=== PATIENT | female | born 1990 | race Caucasian/White ===

== ENCOUNTER → 2023-11-05 12:12 | Outpatient (CLI) | payer OTHER, SELFPAY ==
--- NOTE | 2023-11-05 12:15 | DI.US.S_ITS ---
PROCEDURE: US OB <= 14 WEEKS FETUS INDICATIONS: Bleeding early OUTSIDE/PRIOR DATING DATA: Last menstrual period (LMP): 08/29/2023. LMP-based estimated date of delivery (ITZEL): 06/04/2024. First dating scan (date and location): 11/05/2023. Estimated date of delivery (ITZEL) from first dating scan: 05/28/2024. TECHNIQUE: Real-time scanning was performed of the fetus and maternal pelvic organs, with image documentation. COMPARISON: None. FINDINGS: A single living intrauterine gestation is present with a crown-rump length of 38 mm, corresponding to a 10 week 5 day gestation. heart rate is 185 beats per minute. There is a 32 mm subchorionic hemorrhage present. IMPRESSION: Single living intrauterine gestation with small subchorionic hemorrhage. We strive to produce accurate, complete, and clear reports of imaging services. To assist us in improving patient care, this report was composed using standard report templates and voice recognition software. Therefore, it may contain abnormal punctuation, insertions and/or omissions. Occasional wrong-word or sound-alike substitutions may occur. Though we review the report and make efforts to correct it, we do recommend that the report be read carefully in proper context to recognize any text inaccuracies. Dictated by: Sabra Lala M.D. on 11/05/2023 at 13:38 Approved by: Sabra Lala M.D. on 11/05/2023 at 13:39
== END ==
PROVIDERS: PCP Family Medicine; Referring Provider Student in an Organized Health Care Education/Training Program; Visit Provider Student in an Organized Health Care Education/Training Program
DX: O20.9 Hemorrhage in early pregnancy, unspecified (principal); Z3A.10 10 weeks gestation of pregnancy
CPT/HCPCS: 76801; 76817

== ENCOUNTER → 2023-11-13 11:17 | Outpatient (CLI) | payer OTHER, SELFPAY ==
[2023-11-13 12:14] LABS: Add Manual Diff / Slide Review NO; Basophils Absolute Auto 0 /uL (0-100); Basophils Percent Auto 0.2 % (0-2); Eosinophils Absolute Auto 0 /uL (0-450); Eosinophils Percent Auto 0.6 % (2-4); Hematocrit 35.7 % (36-46); Hemoglobin 12.4 g/dL (12.0-16.0); Lymphocytes Absolute Auto 1800 /uL (1100-4500); Lymphocytes Percent Auto 24.7 % (25-40); Mean Corpuscular HGB Conc 34.7 % (30-36); Mean Corpuscular Hemoglobin 28.7 PG (26-34); Mean Corpuscular Volume 82.6 fL (80-100); Monocytes Absolute Auto 400 /uL (0-900); Neutrophils Absolute Auto 4900 /uL (1500-7000); Neutrophils Percent Auto 69.5 % (50-75); Platelet Count 247 X10^3/uL (150-400); Red Blood Cell Count 4.32 X10^6/uL (4.0-5.2); Red Cell Distribution Width 14.1 % (11.6-14.8); White Blood Cell Count 7.1 X10^3/uL (4.5-11.0)
[2023-11-13 12:21] LABS: Hemoglobin A1C% w Est Avg Glu 5.2 % (4.0-6.0)
[2023-11-14 08:26] LABS: Varicella IgG Antibody 1617 index (Immune >165)
[2023-11-14 16:26] LABS: Hepatitis B Surface Antigen NEGATIVE s/c (NEGATIVE); Rubella Antibody IgG 74.8 IU/mL (>15)
[2023-11-14 16:43] LABS: HIV 1 & 2 Ab/Ag 4th Gen Combo NEGATIVE (NEGATIVE); Hep C Virus Ab w/Reflex Quant NEGATIVE s/c (NEGATIVE)
[2023-11-15 03:30] LABS: RPR Screen Non Reactive (Non Reactive)
== END ==
PROVIDERS: Referring Provider Student in an Organized Health Care Education/Training Program; Visit Provider Student in an Organized Health Care Education/Training Program
DX: O09.299 Supervision of pregnancy with other poor reproductive or obstetric history, unspecified trimester (principal); Z86.32 Personal history of gestational diabetes
CPT/HCPCS: 36415; 80055; 83036; 86787; 86803; 86850; 86900; 86901; 87086; 87389

== ENCOUNTER → 2024-01-15 12:41 | Outpatient (CLI) | payer OTHER, SELFPAY ==
--- NOTE | 2024-01-15 12:42 | DI.US.S_ITS ---
PROCEDURE: US OB >= 14 WEEKS FETUS INDICATIONS: anatomy scan OUTSIDE/PRIOR DATING DATA: Last menstrual period (LMP): 08/29/2023 LMP-based estimated date of delivery (ITZEL): 06/04/2024. First dating scan (date and location): 11/05/2023 Estimated date of delivery (ITZEL) from first dating scan: 05/28/2024. The calculations are made using the working ITZEL of 06/04/2024. TECHNIQUE: Real-time scanning was performed of the fetus, with image documentation and biometric measurements. Endovaginal scanning: Not performed COMPARISON: None. FINDINGS: General: A single living intrauterine gestation is present. Presentation: Breech Placenta: Placental position is posterior, without previa. Amniotic fluid index: 9.7 cm, normal range is 5-24 cm. Single deepest vertical pocket is 3.7 cm. heart rate: 160 beats per minute. Maternal cervical canal: 4.1 cm long. Normal lower limit is 2.5 cm. biometrics: Biparietal diameter: 4.8 cm, 20 weeks, 4 days Head circumference: 18.6 cm, 21 weeks, 0 day Abdominal circumference: 15.2 cm, 20 weeks, 3 days Femur length: 3.3 cm, 20 weeks, 2 days Clinically estimated gestational age: 19 weeks 6 days Composite gestational age from present scan: 20 weeks, 4 days Estimated weight and percentile: 352 g, 77%. Anatomic survey: Neuro: Ventricles are non-dilated at less than 10 mm. Cisterna magna is normal at 3-11 mm. Cerebellum is normal in size and morphology. Nuchal skin fold: Normal at less than 6 mm between 14-21 weeks gestational age. Face: Nose and lips, facial profile are normal. Spine: No evidence for spina bifida. Heart: 4-chambered heart is present,. Ventricular outflow tracts are not well seen on this study. Diaphragm: Diaphragm is intact. Stomach: Left-sided stomach is present. Kidneys: No hydronephrosis. Normal is less than 5 mm in 2nd trimester, less than 7 mm in 3rd trimester. Cord: 3-vessel cord has orthotopic insertion. Bladder: Normal in size. Extremities: All 4 extremities identified. IMPRESSION: 1. Single live intrauterine gestation with fetus in breech presentation. heart rate is 160 beats per minute. Normal amount of amniotic fluid. Normal growth with estimated weight at 77%. 2. Ventricular outflow tracts are not well seen on this study. The rest of the anatomic survey is normal. We strive to produce accurate, complete, and clear reports of imaging services. To assist us in improving patient care, this report was composed using standard report templates and voice recognition software. Therefore, it may contain abnormal punctuation, insertions and/or omissions. Occasional wrong-word or sound-alike substitutions may occur. Though we review the report and make efforts to correct it, we do recommend that the report be read carefully in proper context to recognize any text inaccuracies. Dictated by: Yony Proctor M.D. on 01/15/2024 at 15:19 Approved by: Yony Proctor M.D. on 01/15/2024 at 15:21
== END ==
PROVIDERS: Referring Provider Student in an Organized Health Care Education/Training Program; Visit Provider Student in an Organized Health Care Education/Training Program
DX: Z34.82 Encounter for supervision of other normal pregnancy, second trimester (principal); Z3A.20 20 weeks gestation of pregnancy
CPT/HCPCS: 76811

== ENCOUNTER → 2024-01-21 13:49 | Outpatient (CLI) | payer OTHER, SELFPAY ==
[2024-01-21 20:14] LABS: Urine N gonorrhoeae NOT DETECTED
[2024-01-21 20:19] LABS: Urine Chlamydia NOT DETECTED
== END ==
PROVIDERS: Visit Provider Student in an Organized Health Care Education/Training Program
DX: Z34.80 Encounter for supervision of other normal pregnancy, unspecified trimester (principal)
CPT/HCPCS: 87491; 87591

== ENCOUNTER → 2024-01-21 14:05 | Outpatient (CLI) | payer OTHER, SELFPAY ==
[2024-01-23 21:21] LABS: AFP Value 62.1 ng/mL (.); Gest Age on Col Date 20.6 weeks (.); Insulin Dep Diabetes No (.); OSBR Risk 1IN 4947 (.); Results Report (.); Test Results *Screen Negative* (.)
== END ==
LOC: LAB 14:06
PROVIDERS: Referring Provider Student in an Organized Health Care Education/Training Program; Visit Provider Student in an Organized Health Care Education/Training Program
DX: O99.212 Obesity complicating pregnancy, second trimester (principal)
CPT/HCPCS: 36415; 82105; 87491; 87591

== ENCOUNTER → 2024-03-17 11:58 | Outpatient (CLI) | payer OTHER, SELFPAY ==
[2024-03-17 13:57] LABS: Hematocrit 32.6 % (36-46); Hemoglobin 11.5 g/dL (12.0-16.0)
[2024-03-17 14:28] LABS: GTT (PREG) 1 Hour PP 50gm Dose 144 mg/dL (76-139)
== END ==
PROVIDERS: Referring Provider Student in an Organized Health Care Education/Training Program; Visit Provider Student in an Organized Health Care Education/Training Program
DX: Z34.82 Encounter for supervision of other normal pregnancy, second trimester (principal); Z3A.26 26 weeks gestation of pregnancy
CPT/HCPCS: 36415; 82950; 85014; 85018; 86850

== ENCOUNTER → 2024-04-07 12:43 | Outpatient (CLI) | payer OTHER, SELFPAY ==
--- NOTE | 2024-04-07 12:43 | DI.US.S_ITS ---
PROCEDURE: US OB FOLLOW UP INDICATIONS: incomplete heart views; follow-up growth OUTSIDE/PRIOR DATING DATA: Last menstrual period (LMP): 08/29/2023. LMP-based estimated date of delivery (ITZEL): 06/04/2024. First dating scan (date and location): 11/05/2023. Estimated date of delivery (ITZEL) from first dating scan: 05/28/2024. The calculations are made using the clinical ITZEL of 06/04/2024. TECHNIQUE: Real-time scanning was performed of the fetus, with image documentation and biometric measurements. Endovaginal scanning: Not performed. COMPARISON: OB ultrasound 01/15/2024. FINDINGS: General: A single living intrauterine gestation is present. Presentation: Vertex. Placenta: Placental position is posterior, without previa. Amniotic fluid index: 11.1 cm, normal range is 5-24 cm. Single deepest vertical pocket is 3.4 cm. heart rate: 137 beats per minute. Maternal cervical canal: 4.1 cm long. Normal lower limit is 2.5 cm. biometrics: Biparietal diameter: 7.9 cm, 31 weeks 5 days Head circumference: 29.9 cm, 33 weeks 1 day Abdominal circumference: 29.7 cm, 33 weeks 5 days Femur length: 6.2 cm, 32 weeks 5 days Clinically estimated gestational age: 31 weeks 5 days Composite gestational age from present scan: 32 weeks 5 days Estimated weight and percentile: 2099 g, 80th percentile Anatomic survey: Heart: Not well seen due to lie. IMPRESSION: 1. [place] living intrauterine at 32 weeks 5 days based on today's ultrasound. Fetus is in the 80th percentile for weight. Vertex position. 2. Normal placenta and amniotic fluid. 3. Cardiac outflow tracts are not well seen due to lie. We strive to produce accurate, complete, and clear reports of imaging services. To assist us in improving patient care, this report was composed using standard report templates and voice recognition software. Therefore, it may contain abnormal punctuation, insertions and/or omissions. Occasional wrong-word or sound-alike substitutions may occur. Though we review the report and make efforts to correct it, we do recommend that the report be read carefully in proper context to recognize any text inaccuracies. Dictated by: Andreas Aragon M.D. on 04/07/2024 at 17:09 Approved by: Andreas Aragon M.D. on 04/07/2024 at 17:15
== END ==
PROVIDERS: Referring Provider Student in an Organized Health Care Education/Training Program; Visit Provider Student in an Organized Health Care Education/Training Program
DX: O26.843 Uterine size-date discrepancy, third trimester (principal); Z3A.32 32 weeks gestation of pregnancy
CPT/HCPCS: 76816

== ENCOUNTER → 2024-04-10 07:49 | Outpatient (CLI) | payer OTHER, SELFPAY ==
[2024-04-10 08:39] LABS: Glucose Fasting Gestational 108 mg/dL (76-95)
[2024-04-10 10:07] LABS: Glucose 1 Hour Gest 200 mg/dL (76-180)
[2024-04-10 11:14] LABS: Glucose Tol Interp,Gestational INTERPRETATION
[2024-04-10 11:53] LABS: Glucose 2 Hour Gest 159 mg/dL (76-155)
[2024-04-10 12:32] LABS: Glucose 3 Hour Gest 112 mg/dL (76-140)
== END ==
LOC: LAB 07:49
PROVIDERS: Referring Provider Student in an Organized Health Care Education/Training Program; Visit Provider Student in an Organized Health Care Education/Training Program
DX: O99.810 Abnormal glucose complicating pregnancy (principal); Z3A.26 26 weeks gestation of pregnancy
CPT/HCPCS: 36415; 82951; 82952; 86850; 86870

== ENCOUNTER → 2024-04-24 13:18 | Outpatient (CLI) | payer OTHER, SELFPAY ==
--- NOTE | 2024-04-24 13:32 | DIAB.GDA ---
Addendum entered by Sonali Becker 04/29/24 14:13: Time 1:15-2p Original Note: Initial Gestational Diabetes Assessment Name: Yaa Villa Date: 04/24/24 Time: 1:15- Dx: Gestational Diabetes Provider: Anton ITZEL: 06/04/24 Weeks: 34 Yaa presents for initial GDM visit virtually using [facility]. PMH of GDM with first , son born >9#. Reports diet controlled GDM. No GDM with second . Reports FH of T2DM with mother and grandmother. No dessert since diagnosis. Or will have 3 small cookies. Wants CGM, however not currently on insulin therapy so insurance unlikely to approve. Will place sample next visit when in office and discuss options for SMBG. Diet Recall: wake 8a Bed 930a 8a: espresso with 8oz milk 10-11a: eggs, 1c quinoa and brown rice, veggies 2-3p: same as breakfast OR leftovers: chicken/steak with veggies sometimes low CHO tortillas sn: watermelon or white peach 530-630p: protein, veggies, noyola pasta x 2c water: inconsistent; 40-60oz sometimes less, hard to drink water right now. Doing low sugar flavor pkts Anthropometrics: Ht: Wt: 236# 04/14/24 at OB Prepregnancy wt: 230# Physical Activity: Walks every other day with children. Self-Monitoring Blood Glucose: None Diabetes Medications: None Pertinent Labs: Screen 144 OGTT: 108H, 200H, 159H, 112 Nutrition Rx: Carbohydrates: Meal: 45-g lunch and dinner; 30g breakfast Snack: 15-30g Nutrition Diagnosis: Altered nutrition related lab value r/t GDM dx aeb recent OGTT Food and nutrition related knowledge deficit r/t new dx GDM aeb OGTT and diet recall Self monitoring deficit r/t reported barriers to finger sticks and needing new supplies aeb pt report Intervention: This participant was very receptive. Provided appropriate educational handouts. Discussed the following topics: GDM pathophysiology and impact of hyperglycemia on mom and baby Risk for T2DM for mom and baby in the future Ways to reduce risk T2DM Plate Method, meal timing, carb counting, pairing macronutrients and spreading out CHO for better BG management Blood glucose goals (FBG: <95 and 1 hour <140 mg/dL or 2 hallie <120mg/dl); importance of checking 4x per day (FBG and pc) Potential for CGM, barriers to CGM coverage Impact of macronutrients on blood glucose Recommended servings for carbohydrates at meals and snacks Brainstormed appropriate meal plan based on her food preferences Role of physical activity and following provider guidelines for safety Goals: Download G7 moreno Try to space out carbs q 3-4 hours Keep first meal to 1/2c grains Pair CHO and protein Start finger sticks as much as possible Follow-up: DELMA MIMS follow-up in one week Sonali Becker RDN, PRASANNA Certified Diabetes Care and Collection Coordinator T: [phone] F: [phone] [email or web address] Thank you for this referral
== END ==
LOC: DIET 13:19
PROVIDERS: Referring Provider Student in an Organized Health Care Education/Training Program
DX: O24.419 Gestational diabetes mellitus in pregnancy, unspecified control (principal); Z3A.34 34 weeks gestation of pregnancy
CPT/HCPCS: 97802

== ENCOUNTER → 2024-04-29 13:45 | Outpatient (CLI) | payer OTHER, SELFPAY ==
--- NOTE | 2024-04-29 14:13 | DIAB.GDFU ---
Follow-up Gestational Diabetes Assessment Name: Yaa Villa Date: 04/29/24 Time: 2-245p Dx: Gestational Diabetes Provider: Anton ITZEL: 06/04/24 Weeks: 34-35 Yaa presents for follow-up GDM visit accompanied by her children. PMH of GDM with first , son born >9#. Reports diet controlled GDM. No GDM with second . Reports FH of T2DM with mother and grandmother. CGM rx has not been denied, but reports is still being processed. Unlikely covered due to not currently needing insulin therapy, but will continue with sample in case she would like out of pocket option. Has not picked up SMBG supplies yet. Has been logging food intake. Eating 2-4 oz protein at meals. CHO pretty low for , but not yet sure how this impacts her BG due to no data for review. Having some early satiety at this point in the . Skips breakfast regularly. Anthropometrics: Ht: Wt: 236# 04/14/24 at OB Prepregnancy wt: 230# Physical Activity: Walks every other day with children. Self-Monitoring Blood Glucose: None Diabetes Medications: None Pertinent Labs: Screen 144 OGTT: 108H, 200H, 159H, 112 Nutrition Rx: Carbohydrates: Meal: 45-g lunch and dinner; 30g breakfast Snack: 15-30g Nutrition Diagnosis: Altered nutrition related lab value r/t GDM dx aeb recent OGTT Food and nutrition related knowledge deficit r/t new dx GDM aeb OGTT and diet recall Self monitoring deficit r/t reported barriers to finger sticks and needing new supplies aeb pt report Intervention: This participant was very receptive. Provided appropriate educational handouts. Discussed the following topics: Reviewed importance of having meter and supplies even with CGM Reviewed macronutrient recs for meals and per day for Review of protein portions Discussed potential smoothies with pro and CHO balance Encouraged picking up SMBG supplies CGM education and potential out of pocket options Reviewed CGM use and equipment Discussed when to check blood sugars using finger stick Reviewed high and low blood sugar signs/symptoms and treatment options Provided education for self-administration of CGM placement Educated patient on alarm settings Discussed when to replace equipment and/or disposal Goals: Download G7 moreno- met Try to space out carbs q 3-4 hours- met Keep first meal to 1/2c grains- continue Pair CHO and protein- met Start finger sticks as much as possible- 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 Sonali Becker RDN, AVLERIY Certified Diabetes Care and Collar Stay Fuser Tender T: [phone] F: [phone] [email or web address] Thank you for this referral
== END ==
PROVIDERS: Referring Provider Student in an Organized Health Care Education/Training Program
DX: O24.419 Gestational diabetes mellitus in pregnancy, unspecified control (principal); Z3A.34 34 weeks gestation of pregnancy; Z71.3 Dietary counseling and surveillance; E04.9 Nontoxic goiter, unspecified
CPT/HCPCS: 36415; 84443; 97803

== ENCOUNTER → 2024-04-29 14:49 | Outpatient (CLI) | payer OTHER, SELFPAY ==
[2024-04-29 17:27] LABS: TSH w/ Reflex to FT4 2.06 uIU/mL (0.47-4.68)
== END ==
LOC: LAB 14:49
PROVIDERS: Referring Provider Student in an Organized Health Care Education/Training Program; Visit Provider Student in an Organized Health Care Education/Training Program
DX: E04.9 Nontoxic goiter, unspecified (principal)
CPT/HCPCS: 36415; 84443

== ENCOUNTER → 2024-04-30 10:48 | Outpatient (CLI) | payer OTHER, SELFPAY ==
[2024-05-01 09:51] LABS: Strep Grp B PCR NEG for Grp B Strep
== END ==
PROVIDERS: Referring Provider Student in an Organized Health Care Education/Training Program; Visit Provider Student in an Organized Health Care Education/Training Program
DX: Z36.85 Encounter for antenatal screening for Streptococcus B (principal)
CPT/HCPCS: 87653

== ENCOUNTER 2024-04-30 11:00 | Outpatient (CLI) | payer OTHER, SELFPAY ==
--- NOTE | 2024-04-30 12:05 | PM.OBTRLD ---
Visit Information Visit Information Date of evaluation: 04/30/24 Primary OB Provider: Patricia Walton Reason for Evaluation: Yes non-stress test Comments/Additional reasons for admission: tachycardia in the office [facility] Medical History (Updated 04/30/24 @ 12:06 by Patricia Walton DO) Asthma (~2000) Allergies Chicken pox (~1994) IBS (irritable bowel syndrome) Depression Anxiety ADHD Surgical History (Updated 12/05/23 @ 20:22 by Juany Lauren) Anesthesia Status post section (~03/08/20) [place] teeth extracted History of cholecystectomy (~2018) History of hernia repair (~2017) Status post delivery (03/04/17) Family History (Updated 12/05/23 @ 20:24 by Juany Lauren) Mother Diabetes mellitus Father Thyroid dysfunction Lymphedema Grandfather Stroke History of heart disease Grandmother Stroke Social History marital status: number of children: 2 household members: spouse and children lives independently: Yes caregiver/support person: Yes housing: house pets and animals: Yes (cat & dog, aware of precautions) education level: college (some college) occupational status: unemployed (occasionally ) current occupational exposures/hazards: No special govind needs: No travel history: recent ([place] & domestic) seatbelt use: always water heater temp set < 120 deg: Yes working smoke detector in home: Yes fire extinguisher in home: Yes carbon monox detector in home: Yes do you feel safe at home: Yes Smoking Status: Former smoker (quit vaping 2021) second hand exposure: No alcohol intake: former (occasionally when not ) substance use type: does not use during the past year weight has: remained stable well-balanced diet: daily or most days daily servings fruits/ve-4 caffeine: Yes (AM cup coffee) Type(s) of exercise: walking and other (hiking) frequency: 1-2 times per week Evaluation Evaluation Baseline heart rate: 150 Variability: Moderate (11-25) monitor accelerations: Present Monitor Decelerations: Variable (one during 30min) Category of Tracing: Reactive Diagnosis, Plan/Disposition Final Diagnosis (1) tachycardia: Status: Acute Plan/Disposition Plan: Follow up in clinic as scheduled OB Disposition: home
== END 2024-04-30 11:53 | disposition home or self-care (01) ==
LOC: LABOR 11:20 → OB 05-04 13:07
PROVIDERS: Referring Provider Student in an Organized Health Care Education/Training Program; Visit Provider Student in an Organized Health Care Education/Training Program
DX: O36.8330 Maternal care for abnormalities of the fetal heart rate or rhythm, third trimester, not applicable or unspecified (principal); Z3A.35 35 weeks gestation of pregnancy; Z36.85 Encounter for antenatal screening for Streptococcus B
CPT/HCPCS: 59025; 87653; G0378; G0379

== ENCOUNTER → 2024-05-04 09:47 | Outpatient (CLI) | payer OTHER, SELFPAY ==
--- NOTE | 2024-05-04 09:48 | DI.US.S_ITS ---
PROCEDURE: US OB LIMITED INDICATIONS: EFW; HEART OUTSIDE/PRIOR DATING DATA: Last menstrual period (LMP): 08/29/23. LMP-based estimated date of delivery (ITZEL): 06/04/24. First dating scan (date and location): 11/05/23. Estimated date of delivery (ITZEL) from first dating scan: 05/28/24. The calculations are made using the working ITZEL of 06/04/24. TECHNIQUE: Real-time scanning was performed of the fetus, with image documentation and biometric measurements. Endovaginal scanning: No COMPARISON: None. FINDINGS: General: A single living intrauterine gestation is present. Presentation: Vertex. Placenta: Placental position is posterior to the maternal right , without previa. Amniotic fluid index: 13.1 cm, normal range is 5-24 cm. Single deepest vertical pocket is 4.4 cm. heart rate: 149 beats per minute. Maternal cervical canal: Not well seen. Normal lower limit is 2.5 cm. biometrics: Biparietal diameter: 8.7 cm, 35 weeks two days Head circumference: 31.7 cm, 35 weeks four days Abdominal circumference: 32.1 cm, 36 weeks 0 days Femur length: 7.1 cm, 36 weeks seven days Clinically estimated gestational age: 35 weeks four days Composite gestational age from present scan: 35 weeks six days Estimated weight and percentile: 2809 g, 60th percentile Other: Four chambered heart and cardiac outflow tracts appear normal. IMPRESSION: Single live intrauterine with appropriate growth and estimated weight in the 60th percentile. Completion of anatomic survey with four chambered heart and cardiac outflow tracts, appearing normal. Normal amniotic fluid volume. Posterior placenta. We strive to produce accurate, complete, and clear reports of imaging services. To assist us in improving patient care, this report was composed using standard report templates and voice recognition software. Therefore, it may contain abnormal punctuation, insertions and/or omissions. Occasional wrong-word or sound-alike substitutions may occur. Though we review the report and make efforts to correct it, we do recommend that the report be read carefully in proper context to recognize any text inaccuracies. Dictated by: Delma Pimentel M.D. on 05/04/2024 at 18:34 Approved by: Delma Pimentel M.D. on 05/04/2024 at 18:38
== END ==
PROVIDERS: Referring Provider Student in an Organized Health Care Education/Training Program; Visit Provider Student in an Organized Health Care Education/Training Program
DX: O99.213 Obesity complicating pregnancy, third trimester (principal); Z3A.35 35 weeks gestation of pregnancy
CPT/HCPCS: 76815

== ENCOUNTER → 2024-05-05 08:56 | Outpatient (CLI) | payer OTHER, SELFPAY ==
--- NOTE | 2024-05-05 09:07 | DIAB.GDFU ---
Follow-up Gestational Diabetes Assessment Name: Yaa Villa Date: 05/05/24 Time: 370-493b Dx: Gestational Diabetes Provider: Anton ITZEL: 06/04/24 Weeks: 35-36 Yaa presents for follow-up GDM visit virtually using [facility] Portal. Reports continued difficulty with early satiety and not eating at least 30-45g CHO at meals. States she is unclear why she needs to eat adequate CHO with GDM. Did discuss potential impacts to FBG and overall nutrition status for her and baby with intentional low intake. Encouraged adequate nutrition. Highest CHO up to 40g at meals. Sometimes below 30g at meals. Eating more fruit lately in salads and for snacks. Pairing CHO and pro for snacks. Has not picked up meter/supplies for finger sticks. Had growth scan and baby measuring around 40th percentile. Normal AFV. Anthropometrics: Ht: Wt: 231# 04/30/24 at OB 236# 04/14/24 at OB Prepregnancy wt: 230# Physical Activity: Walks every other day with children. Self-Monitoring Blood Glucose: Wearing Dexcom G7 Sample. WOuld like to try FSL3 since insurance will not cover Dexcom and she may opt to buy out of pocket. Reports waking with most FBG in the 85-95 mg/dl range. One reading of 96mg/dl per report. Asked that she erinn her FBG times in moreno for clear reporting. She agreed. TIR: 0% very high <1% high 99% in range (70-140mg/dl) 0% low Avmg/dl std dev 13mg/dl 12.5% variation Diabetes Medications: None Pertinent Labs: Screen 144 OGTT: 108H, 200H, 159H, 112 Nutrition Rx: Carbohydrates: Meal: 45-g lunch and dinner; 30g breakfast Snack: 15-30g Nutrition Diagnosis: Altered nutrition related lab value r/t GDM dx aeb recent OGTT Food and nutrition related knowledge deficit r/t new dx GDM aeb OGTT and diet recall - improving Self monitoring deficit r/t reported barriers to finger sticks and needing new supplies aeb pt report - improved Inadequate CHO intake during r/t early satiety and fear of hyperglycemia aeb pt report - new Intervention: This participant was very receptive. Provided appropriate educational handouts. Discussed the following topics: Reviewed importance of having meter and supplies even with CGM Reviewed macronutrient recs for meals and per day for Review of importance of balanced diet and strategies Encouraged MOTOR ADJUSTER for CHO during and gave rationale Discussed differences in CGM systems and [place] out of pocket Reviewed BG trends in CGM reports and printed for OB office. Goals: assembly and packing supervisor meter and supplies- not met Wear CGM sample x 10 days- met Aim for 30-45g CHO at meals- in progress Aim for 30g min at meals- new assembly and packing supervisor meter and supplies- continue Make note in CGM moreno of FBG- new Follow-up: DELMA MIMS follow-up in one week. Sonali Becker RDN, PRASANNA Certified Diabetes Care and Technology Consultant T: [phone] F: [phone] [email or web address] Thank you for this referral
== END ==
LOC: DIET 08:58
PROVIDERS: Referring Provider Student in an Organized Health Care Education/Training Program
DX: O24.419 Gestational diabetes mellitus in pregnancy, unspecified control (principal); Z3A.35 35 weeks gestation of pregnancy; Z71.3 Dietary counseling and surveillance
CPT/HCPCS: 97803

== ENCOUNTER → 2024-05-20 11:42 | Outpatient (CLI) | payer OTHER, SELFPAY ==
--- NOTE | 2024-05-22 17:25 | DIAB.GDFU ---
Follow-up Gestational Diabetes Assessment Name: Yaa Villa Date: 05/20/24 Time: 1140a-1210p Dx: Gestational Diabetes Provider: Anton ITZEL: 06/04/24 Weeks: 37-38 Yaa presents for follow-up GDM visit. Reports she continues to be moderate to low most meals for CHO. We did discuss parameters for min/max carbs at a meal for most meals. States she is sometimes below 30g at a meal, though other times way over and had an elevated BG that translated into elevated FBG in the low 100s. This is mostly on fast food dinner nights. Reports h/o son for 1.5 years and daughter 3 years. Feels very comfortable with nutrition and resources per report. Anthropometrics: Ht: Wt: 233# 05/15/24 at OB 231# 04/30/24 at OB 236# 04/14/24 at OB Prepregnancy wt: 230# Physical Activity: Walks every other day with children. Self-Monitoring Blood Glucose: Checked FBG between sensors: 87, 93, 91, 95, 83, 81, 101. BG seem well managed, with exception for occasional higher CHO dinners and elevated FBG of 101 mg/dl recently. Today: TIR: 0% very high 3% high 97% in range (70-140mg/dl) 0% low Avmg/dl std dev 16mg/dl 15.1% variation Last visit: TIR: 0% very high <1% high 99% in range (70-140mg/dl) 0% low Avmg/dl std dev 13mg/dl 12.5% variation Diabetes Medications: None Pertinent Labs: Screen 144 OGTT: 108H, 200H, 159H, 112 Nutrition Rx: Carbohydrates: Meal: 45-g lunch and dinner; 30g breakfast Snack: 15-30g Nutrition Diagnosis: Altered nutrition related lab value r/t GDM dx aeb recent OGTT Food and nutrition related knowledge deficit r/t new dx GDM aeb OGTT and diet recall - improving Self monitoring deficit r/t reported barriers to finger sticks and needing new supplies aeb pt report - improved Inadequate CHO intake during r/t early satiety and fear of hyperglycemia aeb pt report - improved/in progress Intervention: This participant was very receptive. Provided appropriate educational handouts. Discussed the following topics: Recent blood sugar results and impact of food and hormones Review of macronutrient recommendations during Benefits, resources, and nutrition for recommendations for nutrition and physical activity recommendations for T2DM risk reduction OGTT at 6-12 weeks Checking blood sugars twice per week (goal: fasting <100 mg/dL and 2 hour pc <140 mg/dL) until 6 week check-up HgA1c q 1-3 years. Reviewed macronutrient recs for meals and per day for Discussed CGM samples, provided sample, and discussed eventual OTC potential option Goals: Aim for 30g min at meals- improved staff occupational therapist meter and supplies- met Make note in CGM moreno of FBG- met Follow recs dsicussed- new Avoid high carb dinners at this time- new Follow-up: DELMA MIMS follow-up prn. Sonali Becker RDN, PRASANNA Certified Diabetes Care and Dietary Services Manager T: [phone] F: [phone] [email or web address] Thank you for this referral
== END ==
PROVIDERS: Referring Provider Student in an Organized Health Care Education/Training Program
DX: O24.419 Gestational diabetes mellitus in pregnancy, unspecified control (principal); Z3A.37 37 weeks gestation of pregnancy; Z71.3 Dietary counseling and surveillance
CPT/HCPCS: 97803

== ENCOUNTER 2024-05-21 10:46 | Observation (INO) | payer OTHER, SELFPAY ==
[2024-05-21 11:10] VITALS: BP 111/75
--- NOTE | 2024-05-21 12:52 | P.TNLD_ITS ---
Visit Information Visit Information Date of evaluation: 05/21/24 Primary OB Provider: Patricia Walton Reason for Evaluation: Yes rule out labor Comments/Additional reasons for admission: Thinks her water broke last night, has felt damp today. Vital Signs Vital Signs: Vital Signs - 8 hr 05/21/24 11:10 Blood Pressure 111/75 [facility] Medical History (Updated 05/21/24 @ 12:55 by Patricia Walton, DO) Asthma (~2000) Allergies Chicken pox (~1994) IBS (irritable bowel syndrome) Depression Anxiety ADHD Surgical History (Updated 12/05/23 @ 20:22 by Juany Lauren) Anesthesia Status post section (~03/08/20) [place] teeth extracted History of cholecystectomy (~2018) History of hernia repair (~2017) Status post delivery (03/04/17) Family History (Updated 12/05/23 @ 20:24 by Juany Lauren) Mother Diabetes mellitus Father Thyroid dysfunction Lymphedema Grandfather Stroke History of heart disease Grandmother Stroke Social History marital status: number of children: 2 household members: spouse and children lives independently: Yes caregiver/support person: Yes housing: house pets and animals: Yes (cat & dog, aware of precautions) education level: college (some college) occupational status: unemployed (occasionally ) current occupational exposures/hazards: No special govind needs: No travel history: recent ([place] & domestic) seatbelt use: always water heater temp set < 120 deg: Yes working smoke detector in home: Yes fire extinguisher in home: Yes carbon monox detector in home: Yes do you feel safe at home: Yes Smoking Status: Former smoker second hand exposure: No alcohol intake: former (occasionally when not ) substance use type: does not use during the past year weight has: remained stable well-balanced diet: daily or most days daily servings fruits/ve-4 caffeine: Yes (AM cup coffee) Type(s) of exercise: walking and other (hiking) frequency: 1-2 times per week Exam Vital Signs (past 8 hours): - 05/21/24 11:10 Blood Pressure 111/75 Presentation: vertex Amniotic Fluid: no fluid, No ferning present and other (AmniSure negative x2) Other: SVE: FT/L/H speculum: no pooling, white vaginal discharge noted Evaluation Evaluation Baseline heart rate: 150 Variability: Moderate (11-25) monitor accelerations: Present Monitor Decelerations: Absent Category of Tracing: Reactive Cervical dilation (cm): 0 Cervical effacement (%): 0 station: -3 Non-invasive Membranes Rupture Test: negative Comments: bedside sono: vtx presentation, SDP 7.1cm Diagnosis, Plan/Disposition Final Diagnosis (1) Encounter for suspected premature rupture of membranes, with rupture of membranes not found: Status: Acute Plan/Disposition Plan: 34-year-old at 38+ 0 weeks evaluated in the center for rupture of membranes. She underwent AmniSure testing twice, which were both negative. She also had a speculum exam which showed no pooling and no ferning. Her amniotic fluid on abdominal ultrasound was within normal parameters. Discussed with patient that while it does not seem her water broke now, this does not definitively rule out rupture of membranes; if she feels continued leaking, then she should return to the center for repeat evaluation. Patient expressed hesitance to return for evaluation even if she continues to feel leaking. I reiterated to her that it is very important that she return for evaluation if she thinks she is continuing to leak fluid, as this can potentially put her and her baby's life at risk if she were to develop an infection. Patient indicated understanding. OB Disposition: home
== END 2024-05-21 13:13 | disposition home or self-care (01) ==
PROVIDERS: Admitting Provider Student in an Organized Health Care Education/Training Program; Referring Provider Student in an Organized Health Care Education/Training Program; Visit Provider Student in an Organized Health Care Education/Training Program
DX: Z03.71 Encounter for suspected problem with amniotic cavity and membrane ruled out (principal); Z3A.38 38 weeks gestation of pregnancy
CPT/HCPCS: 59025; 76815; 84112; G0378; G0379

== ENCOUNTER 2024-05-25 14:16 | Inpatient (IN) | payer OTHER, SELFPAY ==
[2024-05-25 16:10] LABS: Add Manual Diff / Slide Review NO; Basophils Absolute Auto 0 /uL (0-100); Basophils Percent Auto 0.3 % (0-2); Eosinophils Absolute Auto 0 /uL (0-450); Eosinophils Percent Auto 0.4 % (2-4); Hematocrit 37.8 % (36-46); Hemoglobin 12.8 g/dL (12.0-16.0); Lymphocytes Absolute Auto 2100 /uL (1100-4500); Lymphocytes Percent Auto 25.7 % (25-40); Mean Corpuscular HGB Conc 33.9 % (30-36); Mean Corpuscular Hemoglobin 30.6 PG (26-34); Mean Corpuscular Volume 90.2 fL (80-100); Monocytes Absolute Auto 400 /uL (0-900); Monocytes Percent Auto 4.7 % (3-14); Neutrophils Absolute Auto 5500 /uL (1500-7000); Neutrophils Percent Auto 68.9 % (50-75); Platelet Count 179 X10^3/uL (150-400); Red Blood Cell Count 4.19 X10^6/uL (4.0-5.2); Red Cell Distribution Width 14.8 % (11.6-14.8)
[2024-05-25] MEDS: CITRIC ACID/SODIUM CITRATE 15 ML SOLUTION 30 ML PO (16:25)
--- NOTE | 2024-05-25 16:25 | P.HPOB_ITS ---
OB HPI Date/Time Date of admission: 05/25/24 Date Patient Seen: 05/25/24 Time Patient Seen: 16:26 History of Present Condition Chief complaint: obs ITZEL Calculator 2 Estimated Delivery Date Method Current WG Current Estimate 06/04/24 LMP (Certain) 38w 4d Other Estimates 05/28/24 Ultrasound #1 39w 4d Estimated Gestational Age (weeks): 38+4 : 4 Para: 2 care: good care, initiated at week # (10), number of visits (9) and pounds weight gain (1) Dating criteria OB: LMP confirmed by 1st trimester US Ultrasounds: normal 1st trimester US and normal mid trimester US Obstetrical complications: gestational diabetes (Diet controlled) Medical complications OB: none Indications Indication for induction OB: gestational diabetes Operative indications ( section): previous uterine surgery Preadmission Labs Last OB Lab Results: 2 Blood Type O Negative 11/13/23 11:23 Antibody Screen Positive 04/10/24 08:04 Hct 37.8 % (36-46) 05/25/24 15:45 Hgb 12.8 g/dL (12.0-16.0) 05/25/24 15:45 Hep Bs Antigen Negative s/c (NEGATIVE) 11/13/23 11:23 Hepatitis C Antibody Negative s/c (NEGATIVE) 11/13/23 11:23 Rubella Antibody 74.8 IU/mL (>15) 11/13/23 11:23 VZV IgG Antibody 1617 index (Immune >165) 11/13/23 11:23 Glucose 1 Hr 50 gm 144 mg/dL (76-139) H 03/17/24 13:37 Hemoglobin A1c 5.2 % (4.0-6.0) 11/13/23 11:23 Group B Strep (PCR) Neg for grp b strep 04/30/24 10:47 -: Chlamydia screen: negative, Gonorrhea screen: negative and Urine: negative Genetic Screens: Cell-free DNA: Normal (male) and Alpha-fetoprotein: Normal External Labs -: Urine: negative Prior (ies) Past Pregnancies Del. Date GA/Weeks Labor Lgth Wt Sex Route Outcome Anesthesia Place Delv Breastfeed Preg Comp Name 03/07/16 8 spontaneous 03/04/17 41 9 lb 8 oz Male live - full term IH 2+ years gestational diabetes failure to progress Jeremy 03/08/20 36+ 6 lb Female live - spinal Sapna Davis MD 3+ years other Precious Delivery Date: 03/07/16 Last Updated by: Angie Anderson RN passed spontaneously, no complications Delivery Date: 03/08/20 Last Updated by: Angie Anderson RN PPROM Evaluation Evaluation Baseline heart rate: 140 Variability: Moderate (11-25) monitor accelerations: Present Monitor Decelerations: Absent Contraction Frequency (minutes): 2 Uterine Contraction Intensity: Moderate Status: Category l Dilation (cm): 2 Effacement (%): 100 station: 0 Position of cervix: posterior Consistency: soft PFSH Medical History (Updated 05/21/24 @ 12:55 by Patricia Walton DO) Asthma (~2000) Allergies Chicken pox (~1994) IBS (irritable bowel syndrome) Depression Anxiety ADHD Surgical History (Updated 12/05/23 @ 20:22 by Juany Lauren) Anesthesia Status post section (~03/08/20) [place] teeth extracted History of cholecystectomy (~2018) History of hernia repair (~2017) Status post delivery (03/04/17) Family History (Updated 12/05/23 @ 20:24 by Juany Lauren) Mother Diabetes mellitus Father Thyroid dysfunction Lymphedema Grandfather Stroke History of heart disease Grandmother Stroke Social History marital status: number of children: 2 household members: spouse and children lives independently: Yes caregiver/support person: Yes housing: house pets and animals: Yes (cat & dog, aware of precautions) education level: college (some college) occupational status: unemployed (occasionally ) current occupational exposures/hazards: No special govind needs: No travel history: recent ([place] & domestic) seatbelt use: always water heater temp set < 120 deg: Yes working smoke detector in home: Yes fire extinguisher in home: Yes carbon monox detector in home: Yes do you feel safe at home: Yes Smoking Status: Former smoker second hand exposure: No alcohol intake: former (occasionally when not ) substance use type: does not use during the past year weight has: remained stable well-balanced diet: daily or most days daily servings fruits/ve-4 caffeine: Yes (AM cup coffee) Type(s) of exercise: walking and other (hiking) frequency: 1-2 times per week Meds Home Medications and Allergies Home Medications Medication Instructions Recorded Confirmed Type dicyclomine 20 mg tablet 20 mg PO QID PRN Abdominal 10/23/23 05/25/24 History Discomfort vitamin-ferrous sulfate See Rx Instructions .Route .COMPLEX 10/23/23 05/25/24 History 27 mg iron-folic acid 0.8 mg tablet sertraline 100 mg tablet 150 mg (1.5 x 100 mg) PO DAILY #90 11/22/23 05/25/24 Rx tabs azelastine 205.5 mcg (0.15 %) 2 spray intranasal DAILY 01/21/24 05/25/24 History nasal spray (Astepro Allergy) famotidine 20 mg tablet (Pepcid) 20 mg PO DAILY #30 tabs 01/21/24 05/25/24 Rx blood-glucose meter,continuous #1 ea 04/13/24 05/21/24 Rx (Dexcom G6 Acoustical Material Worker) blood-glucose sensor (Dexcom G6 #3 ea 04/13/24 05/21/24 Rx Sensor device) blood sugar diagnostic (Blood #120 ea 04/28/24 05/25/24 Rx Glucose Test strips) blood-glucose meter (Blood Glucose #1 ea 04/28/24 05/25/24 Rx Monitoring kit) lancets #120 ea 04/28/24 05/21/24 Rx Allergies Allergy/AdvReac Type Severity Reaction Status Date / Time lactose [LACTOSE] AdvReac Mild IBS Unverified 05/21/24 10:36 SYMPTOMS, PT TAKES LACTATE FOR IT paprika [PAPRIKA] AdvReac Unknown IBS Unverified 05/21/24 10:36 SYMPTOMS pepper (genus Capsicum) AdvReac Unknown IBS Unverified 05/21/24 10:36 [PEPPER] SYMPTOMS BARROSO PEPPERS AdvReac Unknown IBS Uncoded 05/21/24 10:36 SYMPTOMS OB Exam Narrative Exam Narrative: Generally: Patient lying in bed, no acute distress Lungs: Clear to auscultation bilaterally Cardiovascular: Regular rate and rhythm Abdomen: Well-healed Pfannenstiel scar Fundal height: 40 cm Estimated weight: 7-1/2-8 lbs Extremities: Trace edema Objective Labs 05/25/24 15:45 Labs: Laboratory Results - last 24 hr 05/25/24 15:45 WBC 8.0 RBC 4.19 Hgb 12.8 Hct 37.8 MCV 90.2 MCH 30.6 MCHC 33.9 RDW 14.8 Plt Count 179 Neut % (Auto) 68.9 Lymph % (Auto) 25.7 [place] % (Auto) 4.7 Eos % (Auto) 0.4 L Baso % (Auto) 0.3 Neut # (Auto) 5500 Lymph # (Auto) 2100 [place] # (Auto) 400 Eos # (Auto) 0 Baso # (Auto) 0 Assessment and Plan Assessment and Plan Assessment and Plan narrative: Assessment: 34-year-old 4 para 2 at 38-,4/7 weeks gestation by last menstrual period, 39-,4/7 weeks gestation by 10 week ultrasound with 2 prior sections Regular contractions with cervical change Plan: Repeat low-transverse section The risks, benefits, and alternatives to the procedure were explained to the patient. The risks including bleeding, infection, injury to the bowel, bladder, or ureters. She understands these risks and agrees to proceed. A full par Q was held and consent form was signed. Time-Based Coding :: [TOTAL MINUTES] spent with patient and on the chart (including review of chart, obtaining history, exam, reviewing outside data, placing orders, documenting exam and treatment plan, and counseling patient) on [DATE].
--- NOTE | 2024-05-25 16:32 | SUR.OPER ---
Supine on padded OR bed, head on pillow, arms secured on padded arm boards at <90 degrees abduction, legs uncrossed, safety belt at thigh, tape over blanket over lower legs.
--- NOTE | 2024-05-25 16:33 | PM.PREOP ---
Pre-operative Note Interval Note History & Physical reviewed/Exam performed by Physician: Yes Changes to H&P: No H&P completed within 30 days and has changed as indicated here:: 05/25/24
[2024-05-25] MEDS: CEFAZOLIN 2 GM/100 ML PREMIX 100 ML IV (16:51)
[2024-05-25] MEDS: LACTATED RINGERS 1,000 ML 999 ML IV (17:13)
[2024-05-25] MEDS: ACETAMINOPHEN IV 1,000 MG/100 ML VIAL 400 MG IV (17:47)
[2024-05-25 18:03] VITALS: BP 123/65; PULSE 66; RESP 15; TEMP 36.1; O2SAT 100
[2024-05-25 18:09] VITALS: BP 115/65; PULSE 81; RESP 15; O2SAT 100
--- NOTE | 2024-05-25 18:12 | P.OP_ITS ---
Operative Date/Time/Diagnoses Date of procedure: 05/25/24 Time of procedure: 18:12 Pre-op diagnosis: 38+ 4 weeks gestation Previous section x2 Active labor GDM A1 Previous hernia repair with mesh Post-op diagnosis: same Procedure & Clinicians Procedure: Repeat low-transverse section Lysis of omental adhesions Same procedure as scheduled: Yes Indications: 34 year old who presented to Labor and Delivery with regular contractions and cervical change. Has had 2 prior C sections. Has had a hernia repair with mesh Surgeon: Kellie Ferguson Click Yes if Unassisted: No Sewing Machine Operator Semiautomatic: Torrey Hodges Reason for Sewing Machine Operator Semiautomatic: The bilingual medical assistant was necessary to retract upon entry into the abdomen and uterus. He assisted with delivery of the infant with fundal pressure. He assisted with closure with retraction, clipping of suture, and closure of the contralateral fascia. Anesthesia Type: Spinal (With Duramorph) Operative Notes Findings: Live male infant in the SEVERIANO presentation Nuchal cord x1 Meconium-stained amniotic fluid Normal tubes and ovaries Omental to uterine adhesions Fascial adhesions Closure Type: primary Specimen(s): cord blood and placenta Intraoperative meds administered: Acetaminophen, Duramorph, Ketorolac and Pitocin Applied: Catheter (To continuous drainage) Estimated Blood Loss (mL): 800 Blood products transfused: none Procedure in detail: After informed consent was obtained, the patient was taken to the operating room where she was placed in the seated position. After spinal anesthesia with Duramorph was administered, she was placed in the dorsal supine position with a leftward tilt. She was then prepped and draped in the usual sterile fashion. A Hurley catheter was placed into the bladder for continuous drainage. After spinal anesthesia was found to be adequate, the previous Pfannenstiel incisions were excised in an elliptical fashion. This piece of skin was then undermined using the scalpel. The incision was then carried through to the underlying fascia which was nicked in the midline. The incision was extended bilaterally with the Daugherty scissors. Care was taken to avoid the mesh which was superior to the incision. The superior fascia was not dissected due to the mesh. The inferior fascia was grasped with Lorenzo clamps, elevated, and the underlying rectus muscles were dissected off sharply and bluntly. The rectus muscles were in the midline. Peritoneum was identified, grasped between 2 hemostats, and entered sharply with the Metzenbaum scissors. This incision was extended inferiorly with good visualization of the bladder. The bladder blade was inserted. The vesicouterine peritoneum was identified, grasped with a pickup, and entered sharply with the Metzenbaum scissors. This incision was extended bilaterally, and the bladder flap created both sharply and bluntly. The bladder blade was reinserted. The lower uterine segment was incised in a transverse fashion with the scalpel. Upon entering the amniotic sac there was found to be moderate meconium-stained amniotic fluid. The infant's head was delivered without difficulty. There was a single nuchal cord which was reduced. The remainder of the body delivered without difficulty. The nose and mouth were suctioned with bulb suction. The was wrapped in a warm blanket and placed on the upper abdomen. After 1 minute, the cord was double clamped and cut. Cord bloods were obtained. Pitocin was given in the IV fluids. The placenta was expressed. The uterus was cleared of all clots and debris. The uterine incision was repaired with 1. Chromic in a running interlocking fashion. A second layer of the same suture was used for an imbricating layer. There was a small area of bleeding in the middle of the incision. A [id number] suture with 0 Vicryl was placed for hemostasis. The tubes and ovaries were examined and were found to be normal. The gutters were cleared of all clots and debris. the peritoneum was closed with 2-0 Vicryl in a running fashion. The fascia was reapproximated using 0 Vicryl in a running fashion. The subcutaneous layer was copiously irrigated with warm normal saline. Five simple interrupted sutures with 3-0 Vicryl were placed to reapproximate the subcutaneous layer. The skin was closed with 4-0 Monocryl in a subcuticular fashion. Steri-Strips and an Aquacel dressing were placed. The uterus was expressed of a small amount of old blood. The uterus was marked 2 cm below the umbilicus. There was clear yellow urine. Sponge, lap, and instrument counts were correct x2. The patient tolerated the procedure well, was taken to PACU in stable condition. Complications: none Baby 1: Infant Gender: Male Presentation: vertex Position: Left Occiput Anterior Placental Delivery Description: Expressed and Normal Configuration Cord Vessel Description: 3 Vessels, Nuchal Cord (x1), Reduced and Clamped/Cut (after one minute) score (1 min): 8 score (5 min): 7 score (10 min): 7 weight: 8 lb 14 oz Post-operative Condition: stable Disposition: PACU Aftercare: routine postop
[2024-05-25 18:14] VITALS: BP 114/66; PULSE 65; RESP 16; O2SAT 100
[2024-05-25] MEDS: diphenhydrAMINE 50 MG/ML VIAL IV (22:05)
[2024-05-25] MEDS: LANOLIN OINT 7 GM 1 APPLIC TOP (22:41)
[2024-05-25 23:26] VITALS: BP 116/76
[2024-05-25] MEDS: KETOROLAC 30 MG/ML VIAL IV (23:28)
[2024-05-26 02:26] VITALS: BP 143/92; PULSE 96; RESP 18; TEMP 36.6
[2024-05-26] MEDS: ACETAMINOPHEN 325 MG TABLET 650 MG PO ×4 (02:28→21:13)
[2024-05-26] MEDS: KETOROLAC 30 MG/ML VIAL IV ×3 (05:36→12:30)
[2024-05-26 06:44] LABS: Hematocrit 32.1 % (36-46); Hemoglobin 11.2 g/dL (12.0-16.0)
[2024-05-26] MEDS: SERTRALINE 50 MG TABLET 150 MG PO (08:50)
[2024-05-26] MEDS: PRENATAL VIT,CALC/IRON/FOLIC 1 TABLET 1 TAB PO (08:52)
[2024-05-26] MEDS: DOCUSATE 100 MG CAPSULE PO (08:52)
[2024-05-26 11:11] VITALS: BP 116/76; PULSE 65; RESP 16; TEMP 36.1
[2024-05-26] MEDS: OXYCODONE IR 5 MG TABLET PO ×2 (17:35→21:15)
[2024-05-26] MEDS: IBUPROFEN 600 MG TABLET PO ×2 (17:43→23:32)
[2024-05-26] MEDS: RHO(D) IMMUNE GLOBULIN 1,500 UNIT SYRINGE 1500 UNIT IM (17:44)
--- NOTE | 2024-05-26 21:27 | PM.OBPN.1 ---
Subjective - OB Subjective Patient comments: no complaints, incisional pain, tolerating diet and flatus present baby status: doing well and nursing well [place] feeding status: exclusively breast feeding Date Patient Seen: 05/26/24 Time Patient Seen: 17:10 Interval history: POD #1 s/p repeat C section and scar revision. Voided without the catheter. Tolerating a diet. Starting to have some pain. Requesting probiotics. Ambulating. + flatus. Exam Vital Signs (past 8 hours): Oxygen Delivery Method Room Air Narrative Exam Narrative: Gen: Sitting up in bed, holding infant, NAD Lungs: CTA bilat CV: RRR Fundus: Firm U/-2 Incision: C/D/I with Aquacel dressing Ext: Trace edema, negative Noa's Objective Labs 05/26/24 06:33 Labs: Laboratory Results - last 24 hr 05/26/24 06:33 Hgb 11.2 L Hct 32.1 L Assessment & Plan Plan day: 1 plan OB: routine postop care Comments: Probiotics Belly band Anticipate discharge 05/27/24 Time-Based Coding :: [TOTAL MINUTES] spent with patient and on the chart (including review of chart, obtaining history, exam, reviewing outside data, placing orders, documenting exam and treatment plan, and counseling patient) on [DATE].
[2024-05-26] MEDS: SIMETHICONE 80 MG TABLET PO (23:46)
[2024-05-27] MEDS: OXYCODONE IR 10 MG TABLET PO (01:14)
[2024-05-27] MEDS: ACETAMINOPHEN 325 MG TABLET 650 MG PO ×3 (03:16→14:50)
[2024-05-27] MEDS: IBUPROFEN 600 MG TABLET PO ×2 (06:33→11:35)
[2024-05-27] MEDS: OXYCODONE IR 5 MG TABLET PO ×3 (07:38→15:26)
[2024-05-27] MEDS: PRENATAL VIT,CALC/IRON/FOLIC 1 TABLET 1 TAB PO (08:57)
[2024-05-27] MEDS: DOCUSATE 100 MG CAPSULE PO (08:58)
[2024-05-27] MEDS: LACTOBACILLUS ACIDOPHILUS TABLET 1 EACH PO (08:58)
[2024-05-27] MEDS: SERTRALINE 50 MG TABLET 150 MG PO (08:58)
--- NOTE | 2024-06-01 05:30 | PM.OBDS.1 ---
Discharge Providers Provider Date of admission: 05/25/24 14:16 Discharge Date: 05/27/24 Primary care physician: Sharona PURVIS Provider Consults: 05/25/24 18:30 Consult to Aeronautical Engineering Teacher Routine Comment: Discharge provider: Kellie Ferguson MD Summary Hospital Course Date Patient Seen: 05/27/24 Time Patient Seen: 07:45 Diagnoses: 38+4 wks gestation Previous C section Omental adhesions Previous hernia repair with mesh Hospital Course: Pt is a 34 year old who presented with regular contractions on 05/25/24. She had made cervical change. She underwent a repeat C section with lysis of omental adhesions without complication. She was discharged to home on 05/27/24. She was tolerating a diet. She was voiding without the catheter. Her pain was well controlled. She was ambulating without assisstance. Peripartum Data Infant Delivery Method: Section Procedures: Spinal anesthesia Repeat C section Lysis of omental adhesions complications: none Shirley 1: Gender: Male Disposition of : home Status at Discharge Cognitive/behavioral status at discharge: oriented Functional status at discharge: independent ambulation Time Spent with Patient Time attestation: Total time spent providing and/or coordinating discharge services: Time spent: Less than 30 minutes Objective Labs 05/26/24 06:33 Exam Vital Signs (past 8 hours): Oxygen Delivery Method Room Air Narrative Exam Narrative: Gen: NAD Lungs: CTA bilat CV: RRR Fundus: Firm U/-2 Abd: Soft, approp tender Incision: C/D/I with Aquacel dressing Ext: Trace edema, negative Noa's Discharge Plan Discharge Plan Patient Disposition: Home Provider Discharge Comment: Ibuprofen 600 mg every 6 hours Tylenol 650 mg every 6 hours as needed Stool softener as needed Discharge orders & Medications Prescriptions: New oxycodone 5 mg tablet 5 mg PO Q4H PRN (Reason: pain) Qty: 20 0RF ibuprofen 600 mg tablet 600 mg PO Q6H PRN (Reason: pain) Qty: 30 2RF Continued sertraline 100 mg tablet 150 mg PO DAILY Qty: 90 3RF vit-ferrous sulfat-FA 27 mg iron- 0.8 mg tablet See Rx Instructions .ROUTE .COMPLEX Rx Instructions: Take as directed dicyclomine 20 mg tablet 20 mg PO QID PRN (Reason: Abdominal Discomfort) azelastine [Astepro Allergy] 205.5 mcg (0.15 %) spray,non-aerosol 2 spray intranasal DAILY Rx Instructions: administer into each nostril famotidine [Pepcid] 20 mg tablet 20 mg PO DAILY Qty: 30 3RF No Action (DME) Dexcom G6 Hand Candy Molder Misc See Rx Instructions .Route Qty: 1 0RF Rx Instructions: Testing blood sugars 4x daily (DME) Dexcom G6 Sensor Device See Rx Instructions .Route Qty: 3 2RF Rx Instructions: Testing blood sugar 4x daily (DME) lancets Misc See Rx Instructions .ROUTE .MEDSUPPLY Qty: 120 3RF Rx Instructions: Testing blood sugar 4x daily Fasting and 2 hours after each meal (DME) Blood Glucose Test Strip See Rx Instructions .ROUTE .MEDSUPPLY Qty: 120 3RF Rx Instructions: Testing blood sugar 4x daily (DME) blood-glucose meter [Blood Glucose Monitoring] Kit See Rx Instructions .ROUTE .MEDSUPPLY Qty: 1 0RF Rx Instructions: Testing blood surgar 4x daily Fasting and 2 hours after each meal Follow up/Referrals: Patricia Walton DO [Physician] - (Incision check on 06/02/2024 @ 4:00pm 6 week follow up appt on 07/07/2024 @ 10:30 am) Diet/Activity/Treatments Diet: Regular Activity: No heavy lifting Nothing in the vagina for 6 weeks Skin/Wound/Dressing Care Report to your healthcare provider any signs of infection, such as:: chills, fever, increased pain, unusual drainage and unusual redness Visit Report/Discharge Packet Instructions: DI for , DI for Prescription Opioid Use Stand Alone Forms: Discharge: Care, Patient Portal/API, Stroke Signs & Symptoms Discharge Data Primary Care Provider: ProviderSharona
== END 2024-05-27 16:44 | disposition home or self-care (01) | DRG 788 ==
PROVIDERS: Obstetrics & Gynecology; Admitting Provider Student in an Organized Health Care Education/Training Program; Referring Provider Student in an Organized Health Care Education/Training Program; Visit Provider Student in an Organized Health Care Education/Training Program
PROC: 10D00Z1 Extraction of Products of Conception, Low, Open Approach (ICD-10-PCS; CPT 59514; principal; 2024-05-25 16:15)
DX: O34.211 Maternal care for low transverse scar from previous cesarean delivery (principal); O24.420 Gestational diabetes mellitus in childbirth, diet controlled; Z3A.38 38 weeks gestation of pregnancy; Z37.0 Single live birth
CPT/HCPCS: 36415; 59050; 85014; 85018; 85025; 86850; 86900; 86901; G0379; J0136; J0690; J1100; J1170; J1200; J1885; J2274; J2405; J2790

== ENCOUNTER → 2025-03-16 12:10 | Outpatient (CLI) | payer OTHER, SELFPAY ==
--- NOTE | 2025-03-16 12:15 | DI.US.S_ITS ---
PROCEDURE: US HERNIA INDICATIONS: RLQ/MID LOW ABD FIRM LARGE LUMP WITH STANDING THAT RETRACTS WHEN LYING DOWN. HISTORY OF HERNIA REPAIR WITH MESH ASSOCIATED WITH PRIOR . LAST TECHNIQUE: Real-time focused scanning was performed of the abdomen, with image documentation. COMPARISON: None. FINDINGS: Ultrasound examination of midline lower abdominal wall shows likely large ventral hernia containing peristalsing bowel loops. Evaluation is limited due to size of the hernia and significant overlying bowel gas. IMPRESSION: Likely large ventral hernia containing pallor style is seen bowel loops. CT of abdomen and pelvis can be done for further evaluation of this region if indicated. Dictated by: Yony Proctor M.D. on 03/16/2025 at 13:54 Approved by: Yony Proctor M.D. on 03/16/2025 at 13:55
== END ==
PROVIDERS: PCP Nurse Practitioner Family; Referring Provider Nurse Practitioner Family; Visit Provider Nurse Practitioner Family
DX: R19.03 Right lower quadrant abdominal swelling, mass and lump (principal); Z87.19 Personal history of other diseases of the digestive system
CPT/HCPCS: 76705

== ENCOUNTER 2025-03-16 13:28 | Emergency (ER) | payer OTHER, SELFPAY ==
[2025-03-16 13:45] VITALS: BP 141/72; PULSE 61; RESP 16; TEMP 37.1; O2SAT 99; BMI 36.1
--- NOTE | 2025-03-16 14:14 | ED_ITS ---
HPI - Abdominal Pain General Chief Complaint: Abdominal Pain Stated Complaint: sent by DI bowel obstruction Time Seen by Provider: 03/16/25 13:57 Source: patient Mode of arrival: Ambulatory History of Present Illness HPI narrative: Patient is sent here from ultrasound department for abnormal ultrasound finding of a ventral hernia. Patient had last May and since then has had protruding worsening enlarging hernia. Still having bowel movements. No urinary complaints. test is negative. Related Data Home Medications ?Medication ?Instructions ?Recorded ?Confirmed dicyclomine 20 mg tablet 20 mg PO QID PRN Abdominal 0 10/23/23 07/28/24 Discomfort vitamin-ferrous sulfate See Rx Instructions . Route .COMPLEX 10/23/23 07/28/24 27 mg iron-folic acid 0.8 mg tablet azelastine 205.5 mcg (0.15 %) 2 spray intranasal DAILY 01/21/24 07/28/24 nasal spray (Astepro Allergy) Previous Rx's ?Medication ?Instructions ?Recorded famotidine 20 mg tablet (Pepcid) 20 mg PO DAILY #30 ta bs 01/21/24 blood-glucose sensor (Dexcom G6 #3 ea 04/13/24 Sensor device) blood-glucose,transit department clerk,cont #1 ea 04/13/24 (Dexcom G6 Solar Installation Supervisor) blood sugar diagnostic (Blood #120 ea 04/28/24 Glucose Test strips) blood-glucose meter (Blood Glucose #1 ea 04/28/24 Monitoring kit) lancets #120 ea 04/28/24 ibuprofen 600 mg tablet 600 mg PO Q6H PRN pain #30 t abs 05/27/24 oxycodone 5 mg tablet 5 mg PO Q4H PRN pain #20 tab s 05/27/24 norethindrone acetate 1.5 1 tab PO DAILY #63 tabs 08/07 01/28 mg-ethinyl estradiol 30 mcg tablet sertraline 100 mg tablet 150 mg (1.5 x 100 mg) PO BENSON LY #60 12/10/24 tabs Allergies Allergy/AdvReac Type Severity Reaction Status Date / Time lactose (LACTOSE) AdvReac Mild IBS Verified 07/28/24 14:01 SYMPTOMS, PT TAKES LACTATE FOR IT paprika (PAPRIKA) AdvReac Unknown IBS Verified 07/28/24 14:01 SYMPTOMS pepper (genus Capsicum) AdvReac Unknown IBS Verified 07/28/24 14:01 (PEPPER) SYMPTOMS BARROSO PEPPERS AdvReac Unknown IBS Uncoded 07/28/24 14:01 SYMPTOMS Review of Systems Review of Systems Narrative: GENERAL: Negative chills, fatigue, malaise, fever, sweats. HEENT: Negative sinus pain, ear pain, sore throat RESPIRATORY: Negative dyspnea, cough CARDIOVASCULAR: Negative chest pain, palpitations GASTROINTESTINAL: Negative vomiting, nausea, positive hernia/abdominal pain : Negative dysuria, frequency, hematuria MUSCULOSKELETAL: Negative muscle or bony pain SKIN: Negative rash, skin lesions NEUROLOGIC: Negative weakness, numbness ROS Unobtainable: All systems reviewed & are unremarkable except as noted in HPI and below Patient History Medical History (Updated 03/16/25 @ 16:21 by Greyson Angulo MD) History of gestational diabetes Asthma (~2000) Allergies Chicken pox (~1994) IBS (irritable bowel syndrome) Depression Anxiety ADHD Surgical History (Updated 07/28/24 @ 14:46 by Patricia Walton DO) Anesthesia Status post section (~03/08/20) [place] teeth extracted History of cholecystectomy (~2018) History of hernia repair (~2017) Status post delivery (03/04/17) Family History (Updated 12/05/23 @ 20:24 by Juany Lauren) Mother Diabetes mellitus Father Thyroid dysfunction Lymphedema Grandfather Stroke History of heart disease Grandmother Stroke Social History marital status: number of children: 2 household members: spouse and children lives independently: Yes caregiver/support person: Yes housing: house pets and animals: Yes (cat & dog, aware of precautions) education level: college (some college) occupational status: unemployed (occasionally ) current occupational exposures/hazards: No special govind needs: No travel history: recent ([place] & domestic) seatbelt use: always water heater temp set < 120 deg: Yes working smoke detector in home: Yes fire extinguisher in home: Yes carbon monox detector in home: Yes do you feel safe at home: Yes Smoking Status: Never smoker second hand exposure: No alcohol intake: former (occasionally when not ) substance use type: does not use during the past year weight has: remained stable well-balanced diet: daily or most days daily servings fruits/ve-4 caffeine: Yes (AM cup coffee) Type(s) of exercise: walking and other (hiking) frequency: 1-2 times per week Smoking Status: Never smoker Exam Narrative Exam Narrative: GENERAL: in no distress, not toxic not dyspneic HEAD: Normocephalic. EYES: Pupils equal round ENT: Mucous membranes moist. NECK: Trachea midline. CARDIOVASCULAR: Regular rate and rhythm RESPIRATORY: Clear to auscultation. Breath sounds equal bilaterally. No wheezes, rales, or rhonchi. GASTROINTESTINAL: Abdomen soft, large reducible ventral wall hernia on standing and partially resolves with lying supine. Bowel sounds are present. No peritoneal signs. No overlying erythema edema or color change. No peritoneal signs no guarding no rebound. EXTREMITIES: No gross deformities. BACK: No flank tenderness. NEURO: AOx4. Clear speech SKIN: Warm and dry PSYCH: Not anxious, is cooperative Initial Vital Signs Initial Vital Signs: Vital Signs Temperature 98.8 F 03/16/25 13:45 Pulse Rate 61 03/16/25 13:45 Respiratory Rate 16 03/16/25 13:45 Blood Pressure 141/72 H 03/16/25 13:45 Pulse Oximetry 99 03/16/25 13:45 Oxygen Delivery Method Room Air 03/16/25 13:45 Course Orders Ordered: Discontinued Medications Sodium Chloride (Normal Saline 0.9%) 500 mls @ 1,000 mls/hr IV BOLUS ONE Stop: 03/16/25 14:41 Last Infusion: 03/16/25 16:28 Dose: Infused Documented By: Admin: 03/16/25 14:42 Dose: 1,000 mls/hr Documented By: DOLLY Ondansetron HCl (Ondansetron 4 Mg/2 Ml Inj) 4 mg IV NOW PRN PRN Reason: Nausea And Vomiting Ondansetron HCl (Ondansetron 4 Mg Odt) 4 mg PO NOW PRN PRN Reason: Nausea And Vomiting Vital Signs Vital signs: Vital Signs - 8 hr 03/16/25 13:45 Temperature 98.8 F Pulse Rate 61 Respiratory Rate 16 Blood Pressure 141/72 H Pulse Oximetry 99 Oxygen Delivery Method Room Air MDM - Abdominal Pain Lab Data 03/16/25 14:31 03/16/25 14:31 Labs: Lab Results 03/16/25 Range/Units 14:31 WBC 6.7 (4.5-11.0) X10^3/uL RBC 4.48 (4.0-5.2) X10^6/uL Hgb 13.5 (12.0-16.0) g/dL Hct 38.4 (36-46) % MCV 85.8 (80-100) fL MCH 30.2 (26-34) PG MCHC 35.2 (30-36) % RDW 13.2 (11.6-14.8) % Plt Count 247 (150-400) X10^3/uL Neut % (Auto) 61.2 (50-75) % Lymph % (Auto) 30.9 (25-40) % [place] % (Auto) 6.3 (3-14) % Eos % (Auto) 1.0 L (2-4) % Baso % (Auto) 0.6 (0-2) % Neut # (Auto) 4100 (4228-4708) /uL Lymph # (Auto) 2100 (8038-8851) /uL [place] # (Auto) 400 (0-900) /uL Eos # (Auto) 100 (0-450) /uL Baso # (Auto) 0 (0-100) /uL Sodium 137 (137-145) mmol/L Potassium 4.1 (3.4-5.1) mmol/L Chloride 104 (98-107) mmol/L Carbon Dioxide 23 (22-32) mmol/L BUN 12 (7-17) mg/dL Creatinine 0.64 (0.52-1.04) mg/dL Estimated GFR > 60 (>60) mL/min BUN/Creatinine Ratio 18.8 (6-22) Glucose 92 (70-99) mg/dL Calcium 9.2 (8.4-10.2) mg/dL Total Bilirubin 0.3 (0.2-1.3) mg/dL AST 17 (14-36) IU/L ALT 15 (<35) IU/L Alkaline Phosphatase 76 (38-126) U/L Total Protein 7.6 (6.3-8.2) g/dL Albumin 4.4 (3.5-5.0) g/dL Globulin 3.2 (1.7-4.1) g/dL Albumin/Globulin Ratio 1.4 (1.0-2.8) Point of care testing: Point of Care Testing Test Results Negative Urine Dip Bedside Urine Glucose Negative Bedside Urine Bilirubin - Negative Bedside Urine Ketone - Negative Urine Specific [place] [employer] 1.020 Bedside Urine Occult Blood - Negative Bedside Urine pH 6.0 Bedside Urine Protein - Negative Bedside Urine Urobilinogen - Negative Bedside Urine Nitrite - Negative Bedside Urine Leukocytes - Negative Esterase Imaging Data CT scan - abdomen/pelvis: Radiologist's Impression: [address] [address] [address] Scan Report Signed Patient: Yaa Villa MR#: [id number] : 1990 Acct:[id number] Age/Sex: 34 / F Date of Service: 03/16/25 Loc: ED Accession Number: [id number] Procedure: CT abdomen pelvis w con Ordering Provider: Greyson Angulo MD PROCEDURE: CT ABDOMEN PELVIS W CON INDICATIONS: IV contrast only/ventral hernia TECHNIQUE: After the administration of intravenous contrast, axial sections acquired from the lung bases to the pubic symphysis. Coronal and sagittal reformats were performed. For radiation dose reduction, the following was used: automated exposure control, adjustment of mA and/or kV according to patient size. COMPARISON: None. FINDINGS: Image quality: Diagnostic. Lower Chest: No significant findings. ABDOMEN: Liver: No solid mass. Gallbladder: Absent. Biliary ducts: No biliary dilation. Pancreas: No ductal dilation. Spleen: Size is within normal limits. Adrenal Glands: No adrenal nodules. Kidneys and Ureters: No hydronephrosis. No solid mass. No complex renal cystic lesion which requires follow up. Stomach and Bowel: Normal colonic caliber, without significant wall thickening. Normal appendix. Moderate colonic stool load. No significant diverticular disease. Peritoneum: No abnormal intraperitoneal fluid. No free air. Ventral Wall: Prior ventral hernia repair. Just below the hernia mesh, there is a large, wide-mouth ventral hernia containing loops of nonobstructed small bowel. The neck measures 8.4 centimeter and the sac measures 17 x 3.8 centimeter. Abdominal Nodes: No retroperitoneal or mesenteric adenopathy by size criteria. Vessels: Aorta and inferior vena cava are normal in size. PELVIS: Pelvic Organs: Unremarkable. Bladder: No bladder wall thickening, accounting for underdistention. Pelvic Nodes: No enlarged lymph nodes. Miscellaneous: No inguinal hernias are seen. Bones: No aggressive osseous abnormality. IMPRESSION: Prior ventral hernia repair. Just below the hernia mesh, there is a large, wide-mouth ventral hernia containing loops of nonobstructed small bowel. The neck measures 8.4 centimeter and the sac measures 17 x 3.8 centimeter. Dictated by: Gilberto Alfonso M.D. on 03/16/2025 at 15:38 Approved by: Gilberto Alfonso M.D. on 03/16/2025 at 15:42 [facility] Narrative Medical decision making narrative: Patient is sent here from ultrasound department for abnormal ultrasound finding of a ventral hernia. Patient had last May and since then has had protruding worsening enlarging hernia. Still having bowel movements. No urinary complaints. test is negative. After history and exam, CBC CMP CT abdomen pelvis normal saline [facility] Medical records reviewed: Ultrasound done today Differential considered: Includes but not limited to reducible hernia incarcerated hernia strangulated hernia Lab Test results independently reviewed as above. Pertinent findings: test negative Imaging studies independently reviewed: CT abdomen pelvis, ventral hernia seen Consultations: 4:19 p.m.. Spoke with General surgery dr fox, patient can be discharged home and follow up with the office for outpatient management and consult. Re-evaluations: 4:30 p.m.. Updated patient results. She agrees for outpatient follow up with General surgery. Return precautions reviewed with her. Nontoxic at discharge. She desires discharge home. Discussion: Appropriate for discharge home. Return precautions reviewed. Exam is reassuring. General surgery was contacted. Diagnosis: Ventral hernia Discharge Plan Departure Patient Disposition: Home Clinical Impression: Hernia, ventral Qualifiers: Obstruction and gangrene presence: without obstruction or gangrene Qualified Code(s): K43.9 - Ventral hernia without obstruction or gangrene Instructions: DI for Ventral Hernia Prescriptions: No Action (DME) Dexcom G6 Solar Installation Supervisor Misc See Rx Instructions .Route Qty: 1 0RF Rx Instructions: Testing blood sugars 4x daily (DME) Dexcom G6 Sensor Device See Rx Instructions .Route Qty: 3 2RF Rx Instructions: Testing blood sugar 4x daily (DME) lancets Misc See Rx Instructions .ROUTE .MEDSUPPLY Qty: 120 3RF Rx Instructions: Testing blood sugar 4x daily Fasting and 2 hours after each meal (DME) Blood Glucose Test Strip See Rx Instructions .ROUTE .MEDSUPPLY Qty: 120 3RF Rx Instructions: Testing blood sugar 4x daily (DME) blood-glucose meter [Blood Glucose Monitoring] Kit See Rx Instructions .ROUTE .MEDSUPPLY Qty: 1 0RF Rx Instructions: Testing blood surgar 4x daily Fasting and 2 hours after each meal norethindrone ac-eth estradiol 1.5-30 mg-mcg tablet 1 tab PO DAILY Qty: 63 3RF sertraline 100 mg tablet 150 mg PO DAILY Qty: 60 0RF vit-ferrous sulfat-FA 27 mg iron- 0.8 mg tablet See Rx Instructions .ROUTE .COMPLEX Rx Instructions: Take as directed dicyclomine 20 mg tablet 20 mg PO QID PRN (Reason: Abdominal Discomfort) azelastine [Astepro Allergy] 205.5 mcg (0.15 %) spray,non-aerosol 2 spray intranasal DAILY Rx Instructions: administer into each nostril famotidine [Pepcid] 20 mg tablet 20 mg PO DAILY Qty: 30 3RF oxycodone 5 mg tablet 5 mg PO Q4H PRN (Reason: pain) Qty: 20 0RF ibuprofen 600 mg tablet 600 mg PO Q6H PRN (Reason: pain) Qty: 30 2RF Referrals: Ashwini Miller ARNP [Primary Care Provider, Nursing] Toño Fox MD [Physician, General Surgery] Referral Note: [phone] Stand Alone Forms: Patient Portal/API
[2025-03-16 14:40] LABS: Add Manual Diff / Slide Review NO; Basophils Absolute Auto 0 /uL (0-100); Basophils Percent Auto 0.6 % (0-2); Eosinophils Absolute Auto 100 /uL (0-450); Hematocrit 38.4 % (36-46); Hemoglobin 13.5 g/dL (12.0-16.0); Lymphocytes Absolute Auto 2100 /uL (1100-4500); Lymphocytes Percent Auto 30.9 % (25-40); Mean Corpuscular HGB Conc 35.2 % (30-36); Mean Corpuscular Hemoglobin 30.2 PG (26-34); Mean Corpuscular Volume 85.8 fL (80-100); Monocytes Absolute Auto 400 /uL (0-900); Monocytes Percent Auto 6.3 % (3-14); Neutrophils Absolute Auto 4100 /uL (1500-7000); Neutrophils Percent Auto 61.2 % (50-75); Platelet Count 247 X10^3/uL (150-400); Red Blood Cell Count 4.48 X10^6/uL (4.0-5.2); Red Cell Distribution Width 13.2 % (11.6-14.8); White Blood Cell Count 6.7 X10^3/uL (4.5-11.0)
[2025-03-16] MEDS: SODIUM CHLORIDE 0.9% 500 ML 1000 ML IV (14:42)
[2025-03-16 14:50] LABS: Alanine Aminotransferase 15 IU/L (<35); Albumin 4.4 g/dL (3.5-5.0); Albumin Globulin Ratio 1.4 (1.0-2.8); Alkaline Phosphatase 76 U/L (38-126); Aspartate Aminotransferase 17 IU/L (14-36); BUN Creatinine Ratio 18.8 (6-22); Bilirubin Total 0.3 mg/dL (0.2-1.3); Blood Urea Nitrogen 12 mg/dL (7-17); Calcium 9.2 mg/dL (8.4-10.2); Carbon Dioxide 23 mmol/L (22-32); Chloride 104 mmol/L (98-107); Estimated Glomerular Filt Rate > 60 mL/min (>60); Globulin 3.2 g/dL (1.7-4.1); Glucose 92 mg/dL (70-99); HEMOLYSIS < 15 (0-50); Potassium 4.1 mmol/L (3.4-5.1); Sodium 137 mmol/L (137-145); Total Protein 7.6 g/dL (6.3-8.2)
[2025-03-16 16:05] VITALS: BP 134/86; PULSE 70; RESP 16; O2SAT 99
== END 2025-03-16 16:30 | disposition home or self-care (01) ==
PROVIDERS: Emergency Provider Emergency Medicine; PCP Nurse Practitioner Family
DX: K43.9 Ventral hernia without obstruction or gangrene (principal)
CPT/HCPCS: 36415; 74177; 76705; 80053; 81003; 81025; 85025; 96360; 96361; 99284; Q9967

== ENCOUNTER 2025-04-02 11:03 | Day surgery (SDC) | payer OTHER, SELFPAY ==
[2025-03-26 13:15] VITALS: BMI 36.1
[2025-04-02] MEDS: LACTATED RINGERS 1,000 ML 42 ML IV (11:54)
[2025-04-02] MEDS: SCOPOLAMINE 1 PATCH TOP (11:56)
[2025-04-02 12:00] VITALS: BP 112/69; PULSE 65; RESP 16; TEMP 36.6; O2SAT 98; BMI 36.1
--- NOTE | 2025-04-02 12:24 | PM.PREOP ---
Pre-operative Note COVID-19 COVID-19 status: Not tested Interval Note History & Physical reviewed/Exam performed by Physician: Yes Changes to H&P: No ASA Class (for procedural sedation): II
[2025-04-02] MEDS: CEFAZOLIN 2 GM/100 ML PREMIX 100 ML IV (12:48)
--- NOTE | 2025-04-02 13:13 | SUR.OPER ---
Supine on padded OR bed, head on pillow, arms secured on padded arm boards at <90 degrees abduction, legs uncrossed, safety belt at thigh, tape over blanket over lower legs.
[2025-04-02] MEDS: ACETAMINOPHEN IV 1,000 MG/100 ML VIAL 400 MG IV (13:15)
[2025-04-02] MEDS: BUPIVACAINE 0.5% W/ EPI (PF) 30 ML VIAL INJ (13:21)
--- NOTE | 2025-04-02 14:27 | SUR.OPER ---
Dr. Marie out at 1410 to perform another operation.
[2025-04-02] MEDS: BUPIVACAINE LIPOSOME 266 MG/20 ML VIAL INJ (14:48)
--- NOTE | 2025-04-02 15:59 | P.OP_ITS ---
Operative Date/Time/Diagnoses Date of procedure: 04/02/25 Time of procedure: 15:59 Pre-op diagnosis: Recurrent ventral incisional hernia Post-op diagnosis: same Procedure & Clinicians Procedure: Open recurrent ventral incisional hernia repair with mesh Same procedure(s) as scheduled: Yes Surgeon: Zhang Watkins Hydrometer Calibrator: Cheikh Dale Anesthesia Type: General Operative Notes Findings: 9 cm x 15 cm fascial defect Applied: none Estimated Blood Loss (mL): 50 Procedure in detail: Ancef was administered. The patient was brought to the operating room, placed on the table in the supine position and general endotracheal anesthesia was induced. A a A dowd catheter was placed. The abdomen was prepped and draped in the usual fashion. A time-out was performed. A 15 cm incision was made in the midline from the pubis to 4 fingerbreadths below the umbilicus. Dissection was carried down to the hernia sac. The hernia sac was dissected from the surrounding subcutaneous adipose tissue and we followed the dissection down to the anterior sheath on both sides. The hernia sac was never violated. We dissected with the rectus muscle on both sides she will require aspiration the anterior sheath to extend to the midline. The facial defect was 9 cm in the transverse direction and about 15 cm in the axial direction. The fascia was then closed with multiple interrupted [id number] Ethibond sutures. The subcutaneous adipose tissue was cleared off of the anterior sheath circumferentially about 2-4 cm in each direction. A piece of polypropylene mesh was trimmed to fit over the fascial closure and secured with 8 mL of Tisseel. Once the Tisseel was dried the subcutaneous adipose tissue was closed with interrupted 3-0 Vicryl sutures. The skin was closed with multiple interrupted 3-0 Vicryl dermal sutures followed by a running 4 Monocryl subcuticular closure. Steri-Strips were applied and an abdominal binder was applied. Cheikh TAYLOR provided assistance with exposure, retraction and closure of incisions. Complications: none Post-operative Condition: stable Disposition: PACU
[2025-04-02 16:13] VITALS: BP 106/70; PULSE 94; RESP 16; TEMP 36.1; O2SAT 97
[2025-04-02 16:18] VITALS: BP 119/75; PULSE 90; RESP 16; O2SAT 94
[2025-04-02 16:23] VITALS: BP 130/84; PULSE 65; RESP 16; O2SAT 98
[2025-04-02] MEDS: HYDROMORPHONE 1 MG INJ IV ×3 (16:26→16:44)
[2025-04-02] MEDS: ONDANSETRON 4 MG/2 ML INJ IV (16:27)
[2025-04-02 16:38] VITALS: BP 137/88; PULSE 78; RESP 14; O2SAT 98
[2025-04-02 17:04] VITALS: BMI 36.1
[2025-04-02 19:00] VITALS: BP 144/90; PULSE 94; RESP 16; O2SAT 99
[2025-04-02] MEDS: IBUPROFEN 600 MG TABLET PO (19:49)
[2025-04-02] MEDS: BENZOCAINE/MENTHOL 1 LOZ PKT 1 EACH PO (21:22)
[2025-04-02] MEDS: HYDROCODONE/ACET 5/325 TABLET 1 TAB PO (21:22)
[2025-04-03] MEDS: HYDROCODONE/ACET 5/325 TABLET 1 TAB PO ×2 (01:22→05:58)
[2025-04-03] MEDS: BENZOCAINE/MENTHOL 1 LOZ PKT 1 EACH PO ×2 (01:22→05:58)
[2025-04-03 01:29] VITALS: BP 122/68; PULSE 60; RESP 18; TEMP 37.1; O2SAT 95
[2025-04-03] MEDS: IBUPROFEN 600 MG TABLET PO (06:55)
[2025-04-03] MEDS: FLUCONAZOLE 100 MG TABLET PO (08:11)
[2025-04-03 09:00] VITALS: BP 114/62; PULSE 70; RESP 16; TEMP 37.3; O2SAT 95
[2025-04-03] MEDS: HYDROCODONE/ACET 5/325 TABLET 2 TAB PO (10:31)
[2025-04-03] MEDS: SODIUM CHLORIDE 0.9% FLUSH 10 ML IV (10:32)
--- NOTE | 2025-04-03 10:36 | CM.DANOTE ---
B DCP Assessment note pt is a 34yo F POD1 ventral hernia repaid with Dr. Watkins. PCP Ashwini Miller Payer prime and self pay RN SPINE reviewed EMR per chart review, pt lives indep with spouse Troy in [place] with children. per nursing staff, indep in room expected dc today. no obvious CM needs. per chart review, no identified barriers to safe dc home with spouse support identified at this time CM team will continue to follow in case any additional DCP/CM needs arise ROSSY Fung Discharge Planning/Care Management CM Discharge Assessment Start: 04/02/25 15:56 Freq: Status: Active Protocol: Document 04/03/25 10:35 SL (Rec: 04/03/25 10:36 SL Desktop) Discharge Planning Assessment Assigned Discharge ROSSY Johnson Laundry Helper DPOA/Assigned [place]etroy Designee Name Contact Information [phone] Advance Directives? No Advance Directives No on File History Provided By Patient,Family Member,Medical Record Prior Living House Arrangements Household Members spouse,children Type of Drives own vehicle transporation used prior to admit Independent with ADL Yes 's Is patient alert and Yes oriented? Discharge Plan Home Referrals Initiated None needed Review Status In Process Please Provide Date 04/03/25 Initial DC Assessment Was Performed Next Review Type Continued Stay Review Pre-Anesthesia Assessment Start: 03/26/25 13:15 Freq: Status: Active Protocol: Document 03/26/25 13:15 LB (Rec: 03/26/25 13:22 LB [id number]) Pre-Anesthesia Assessment PAC Comment 03/26/25 Chart review. Patient Information Chart Review Reviewed Via Diagnostic Results BMP/CMP,CBC Comment 03/16/25 at . Primary Care Ashwini Miller Provider Seen Specialist in Yes Last 12 Months Specialist Seen Emergency,General surgeon Primary Language Kazakh Preferred Language Kazakh Ext Js Developer Required No Height 165.1 cm Weight 98.43 kg Body Mass Index (BMI 36.1 ) Anesthesia Review No Requested Kindergarten Teacher No Smoking Status Former smoker Tobacco type cigarettes how long ago did Quit 2018. patient quit smoking Substance Use Type [ does not use #R] Patient is No completely paralyzed or completely immobile Is patient on oxygen No ? Hx Sleep Apnea No Currently Taking a No Beta Arsenio Anti-Coagulant No Therapy Cardiac Testing No Hx Pacemaker/ICD No Diet Type At Home Lactose Intolerant Gastrointestinal Abdominal Pain,Constipation,Diarrhea Symptoms Bladder Pattern Incontinent, Stress Hx Urinary Self No Catheterization Diabetes No Marital Status Lives With spouse,children Patient Discharge Return Home Plan Description Additional comment Possible overnight LOS per Dr Watkins's note. Emergency Contact Troy Humbertojah - Name Emergency Contact [phone] Phone Number Advance Directives No on File
== END 2025-04-03 11:15 | disposition home or self-care (01) ==
LOC: OR 11:04 → AC 15:24
PROVIDERS: PCP Nurse Practitioner Family; Referring Provider Nurse Practitioner Family; Visit Provider Surgery
PROC: (CPT 49617; principal; 2025-04-02 12:30)
DX: K43.2 Incisional hernia without obstruction or gangrene (principal)
CPT/HCPCS: 49617; C1781; C9250; J0131; J0666; J0690; J1100; J1171; J1885; J2250; J2405; J2704; J3010